=== PATIENT | male | born 1955 | race Caucasian/White ===

== ENCOUNTER 2020-03-27 10:26 | Emergency (ER) | payer MEDICARE ==
[2020-03-27] MEDS ORDERED: VALTREX1000 MG PO (11:26)
[2020-03-27] MEDS ORDERED: PREDNISONE 20MG20 MG PO (11:26)
[2020-03-27] MEDS ORDERED: ARTIFICIAL TEAR15 ML OS (11:26)
[2020-08-05] MEDS ORDERED: CINNAMON500 MG PO (13:29)
[2020-08-05] MEDS ORDERED: ASPIRIN EC81 MG PO (13:29)
[2020-08-05] MEDS ORDERED: GLUCOTROL10 MG PO (13:30)
[2020-08-05] MEDS ORDERED: LANTUS **100 UNITS/ SC (13:30)
[2020-08-05] MEDS ORDERED: DICLOFENAC SODI75 MG PO (13:30)
[2020-08-05] MEDS ORDERED: JARDIANCE25 MG PO (13:30)
[2020-08-05] MEDS ORDERED: NITROQUIK SL0.4 MG SL (13:31)
[2020-08-05] MEDS ORDERED: COZAAR50 MG PO (13:31)
[2020-08-05] MEDS ORDERED: GLUCOPHAGE1000 MG PO (13:31)
[2020-08-05] MEDS ORDERED: OZEMPIC0.25 MG/0. SC (13:32)
[2020-08-05] MEDS ORDERED: VITAMIN D3125 MC2 PO (13:32)
[2020-08-05] MEDS ORDERED: PRAVASTATIN SOD80 MG PO (13:32)
== END 2020-03-27 11:40 | disposition home or self-care (01) ==
LOC: FER 10:26
DX: G51.0 Bell's palsy (principal); I10 Essential (primary) hypertension; Z87.442 Personal history of urinary calculi
CPT/HCPCS: 99283

== ENCOUNTER → 2020-08-12 | Day surgery (SDC) | payer MEDICARE ==
[~2020-08-12] VITALS: Ht 182.9 cm; Wt 96.2 kg
[~2020-08-12] MED LIST: ARTIFICIAL TEAR15 ML OS; ASPIRIN EC81 MG PO; CINNAMON500 MG PO; COZAAR50 MG PO; DICLOFENAC SODI75 MG PO; GLUCOPHAGE1000 MG PO; GLUCOTROL10 MG PO; JARDIANCE25 MG PO; LANTUS **100 UNITS/ SC; NITROQUIK SL0.4 MG SL; OZEMPIC0.25 MG/0. SC; PRAVASTATIN SOD80 MG PO; PREDNISONE 20MG20 MG PO; VALTREX1000 MG PO; VITAMIN D3125 MC2 PO
== END | disposition home or self-care (01) ==
LOC: FAS 08:29
DX: Z12.11 Encounter for screening for malignant neoplasm of colon (principal); E11.9 Type 2 diabetes mellitus without complications; E78.00 Pure hypercholesterolemia, unspecified; G47.33 Obstructive sleep apnea (adult) (pediatric); N40.0 Benign prostatic hyperplasia without lower urinary tract symptoms; I25.10 Atherosclerotic heart disease of native coronary artery without angina pectoris; I25.2 Old myocardial infarction; M19.90 Unspecified osteoarthritis, unspecified site; Z79.84 Long term (current) use of oral hypoglycemic drugs; Z79.899 Other long term (current) drug therapy; Z98.890 Other specified postprocedural states; Z99.89 Dependence on other enabling machines and devices; Z80.0 Family history of malignant neoplasm of digestive organs; Z87.891 Personal history of nicotine dependence; Z86.16 Personal history of COVID-19
CPT/HCPCS: J2250; J2704; J7120

== ENCOUNTER 2020-11-10 16:19 | Emergency (ER) | payer MEDICARE ==
[2020-11-10 17:01] LABS: BASOPHIL 0.5 % (0-2); EOSINOPHIL 6.3 % (0-7); HCT 41.3 % (42.0-52.0); HGB 13.5 g/dl (13.2-18.0); LYMPHOCYTE 29.4 % (15-48); MCH 30.1 pg (25.0-31.0); MCHC 32.7 g/dL (32.0-36.0); MONOCYTE 9.5 % (0-12); MPV 10.1 fL (6.0-9.5); NEUTROPHIL 54.1 % (41-80); NRBC 0; PLT 145 K/uL (150-400); RBC 4.49 M/uL (4.70-6.00); RDW 13.2 % (11.5-14.0); WBC 6.6 K/uL (4.0-10.5)
[2020-11-10 17:13] LABS: ALBUMIN 3.9 g/dL (3.4-5.0); BILIRUBIN - TOTAL 0.5 mg/dL (0.2-1.0); BUN/CREAT RATIO (CALC) 18.2 RATIO; CREATININE 0.88 mg/dL (0.67-1.17); GLOBULIN (CALCULATION) 3.6 g/dL; POTASSIUM 4.2 mmol/L (3.5-5.1); TOTAL PROTEIN 7.5 g/dL (6.4-8.2)
[2020-11-10 17:33] LABS: BILIRUBIN NEGATIVE (NEGATIVE); BLOOD NEGATIVE Ery/uL (NEGATIVE); CLARITY CLEAR (CLEAR); COLOR YELLOW (YELLOW); GLUCOSE (U) 3+ mg/dL (NORMAL); LEUKOCYTES NEGATIVE Leu/uL (NEGATIVE); NITRITE NEGATIVE (NEGATIVE); PROTEIN NEGATIVE (NEGATIVE); SPECIFIC GRAVITY 1.015 (1.001-1.030); UROBILINOGEN 0.2 mg/dL (0.2-1.0)
[2020-11-10] MEDS ORDERED: ZOFRAN4 M1 PO (20:45)
[2020-11-10] MEDS ORDERED: FLOMAX0.4 MG PO (20:45)
== END 2020-11-10 21:05 | disposition home or self-care (01) ==
LOC: FER 16:19
PROVIDERS: Emergency Medicine
DX: N13.2 Hydronephrosis with renal and ureteral calculous obstruction (principal)
CPT/HCPCS: 36415; 80053; 81003; 84100; 85025; J2270; J2405; J7030